=== PATIENT | male | born 1940 | race Caucasian/White ===

== ENCOUNTER 2020-04-23 09:50 | Outpatient (CLI) | payer MEDICARE | END 2020-04-23 09:51 | disposition home or self-care (01) | LOC: CTENTCT 09:50 | PROVIDERS: ATTEND Otolaryngology Plastic Surgery within the Head & Neck | DX: J32.9 Chronic sinusitis, unspecified (principal) | CPT/HCPCS: 70486 ==

== ENCOUNTER 2024-03-27 16:00 | Outpatient (CLI) | payer MEDICARE | END 2024-03-27 16:01 | disposition home or self-care (01) | LOC: SLEEPLAB 16:00 | PROVIDERS: ATTEND Physician Assistant | DX: G47.33 Obstructive sleep apnea (adult) (pediatric) (principal); R53.83 Other fatigue; R06.83 Snoring | CPT/HCPCS: 95810 ==